=== PATIENT | male | born 1960 | race Two or more races ===

== ENCOUNTER 2024-12-28 14:20 | Emergency (ER) | payer MEDICAID, SELFPAY ==
[2024-12-28 14:31] VITALS: BP 144/98; PULSE 69; RESP 18; TEMP 36.9; O2SAT 95; BMI 29.3
--- NOTE | 2024-12-28 14:51 | EDRME_ITS ---
Rapid Medical Screening Exam RME Arrival date/time: 12/28/24 14:20 Chief Complaint: General Adult/Misc Complain Time Seen by Provider: 12/28/24 14:22 Vital signs: Vital Signs Temperature 98.5 F 12/28/24 14:31 Pulse Rate 69 12/28/24 14:31 Respiratory Rate 18 12/28/24 14:31 Blood Pressure 144/98 H 12/28/24 14:31 Pulse Oximetry (%) 95 12/28/24 14:31 Oxygen Delivery Method Room Air 12/28/24 14:31 RME Narrative: 64-year-old male presents to the ED with a complaint of ongoing right sided back pain that radiates around to his flank and into his abdomen. He states this has been ongoing for many years. He has had an MRI of his lumbar spine. His primary care physician in [facility] recommended he have an ultrasound. He denies any fever or chills, nausea or vomiting, diarrhea or changes in bowel habits. He denies any urinary frequency, dysuria, hematuria, however he has noticed a change in his stream quality with urination. I have greeted and performed a focused initial assessment of this patient. A comprehensive ED assessment and evaluation of the patient, analysis of all test results, and completion of the medical decision making process will be conducted by additional ED providers.
--- NOTE | 2024-12-28 14:57 | XR_ITS ---
Examination: Abdomen sonogram, complete Date and time of exam: December 28, 2024 1603 hrs. Indications: Right flank pain left upper abdominal pain left lower abdominal pain beginning 4 years ago. Technique: Multiple real-time grayscale transabdominal sonographic images of the abdomen have been obtained. Findings: Normal gallbladder Normal common bile duct 0.3 cm Pancreatic head 3.0 cm Aorta not enlarged Liver 16.7 cm fatty infiltration no focal liver lesions Normal hepatopedal portal venous flow Patent IVC Right kidney 11.4 cm cortex 1.6 cm 10 mm renal cyst Left kidney 11.6 cm cortex 2.3 cm Mild bilateral renal parenchymal scar formation Splenomegaly 14.6 cm with multiple splenic cysts, the largest 16 mm Impression: Normal bladder Normal common bile duct Mild hepatomegaly fatty liver Splenomegaly with benign splenic cysts
[2024-12-28 15:31] LABS: Bilirubin,Urine Negative (Negative); Blood,Urine Negative (Negative); Clarity,Urine Clear (Clear/Hazy); Collection Type, Urine Clean Catch; Glucose, Urine Negative (Negative); Hyaline Casts,Urine < 1 /hpf (0-1); Ketones,Urine Negative (Negative); Leukocyte Esterase,Urine Negative (Negative); Nitrite,Urine Negative (Negative); PH,Urine 6.5 (5.0-7.0); Protein,Urine Negative (Neg - Trace); RBC,Urine < 1 /hpf (0-3); Specific Gravity,Urine 1.022 (1.001-1.035); Squamous Epithelial Cell,Urine < 1 /hpf (0-5); Urobilinogen,Urine Negative mg/dL (0.0-1.0); WBC,Urine 1 /hpf (0-5)
[2024-12-28 15:37] LABS: Color,Urine Amber (Lt Yel-Yel)
[2024-12-28 17:09] LABS: Basophils # (Auto) 0.1 Thou/mm3 (0.0-0.2); Basophils % (Auto) 1 % (0-2.5); Eosinophils # (Auto) 0.2 Thou/mm3 (0.0-0.5); Eosinophils % (Auto) 2 % (0-10); Hematocrit 44.3 % (41.0-53.0); Hemoglobin 15.4 g/dL (13.5-16.0); Immature Granulocytes % (Auto) 0 % (0-0); Immature Granulocytes Auto 0.02 Thou/mm3 (0.00-0.00); Lymphocytes # (Auto) 2.5 Thou/mm3 (1.0-4.8); Lymphocytes % (Auto) 31 % (10-50); Mean Corpuscular HGB Conc 34.8 g/dl (31.0-37.0); Mean Corpuscular Hemoglobin 30.9 pg (25.0-35.0); Mean Corpuscular Volume 89 fL (80-100); Monocytes # (Auto) 0.6 Thou/mm3 (0.0-0.8); Monocytes % (Auto) 7 % (0-12); Neutrophils # (Auto) 4.8 Thou/mm3 (1.8-7.7); Neutrophils % (Auto) 59 % (37-80); Nucleated Red Blood Cell % 0 /100 WBC (0); Platelet Count 156 Thou/mm3 (140-440); RDW Standard Deviation 42.1 fL (35.1-43.9); Red Blood Count 4.98 Miln/mm3 (4.50-5.90); White Blood Count 8.1 Thou/mm3 (3.8-10.6)
[2024-12-28 17:21] LABS: Prostate Specific Antigen 0.91 ng/mL (0-4.00)
[2024-12-28 17:22] LABS: Alanine Aminotransferase 13 U/L (10-49); Albumin, Serum 4.3 gm/dL (3.4-4.8); Albumin/Globulin Ratio 1.8 (1.2-2.2); Alkaline Phosphatase 95 U/L (46-116); Anion Gap 6 (7-16); Aspartate Amino Transferase 14 U/L (0-34); BUN/Creatinine Ratio 16 Ratio (12-20); Bilirubin,Total 0.6 mg/dL (0.3-1.2); Blood Urea Nitrogen 18 mg/dL (9-23); Calcium 8.9 mg/dL (8.3-10.6); Calcium (Corrected) 8.9 mg/dL (8.5-10.1); Carbon Dioxide 28.5 mMol/L (20.0-31.0); Chloride 107 mMol/L (98-107); Creatinine (Component) 1.1 mg/dL (0.6-1.3); Estimated Creatinine Clearance 79.7 mL/min (>60); Globulin 2.4 gm/dL (2.3-3.5); Glucose 90 mg/dL (74-106); Osmolality,Calculated 283 (275-295); Potassium 3.3 mMol/L (3.4-5.1); Sodium 141 mMol/L (136-145); Total Protein 6.7 gm/dL (5.7-8.2); eGFR > 60 See Note
--- NOTE | 2024-12-28 18:48 | PD.EDADULT ---
ED General RME/HPI General Chief complaint: General Adult/Misc Complain Stated complaint: PT WANTS ULTRASOUND FOR R) BACK/SIDE/ABD PAIN Time Seen by Provider: 12/28/24 14:22 Arrival date/time: 12/28/24 14:20 64-year-old male presents to the ED with a complaint of ongoing right sided back pain that radiates around to his flank and into his abdomen. He states this has been ongoing for many years. He has had an MRI of his lumbar spine. His primary care physician in [facility] recommended he have an ultrasound. He denies any fever or chills, nausea or vomiting, diarrhea or changes in bowel habits. He denies any urinary frequency, dysuria, hematuria, however he has noticed a change in his stream quality with urination. RME / HPI RME / HPI narrative: 64-year-old male presents to the ED with a complaint of ongoing right sided back pain that radiates around to his flank and into his abdomen. He states this has been ongoing for many years. He has had an MRI of his lumbar spine. His primary care physician in [facility] recommended he have an ultrasound. He denies any fever or chills, nausea or vomiting, diarrhea or changes in bowel habits. He denies any urinary frequency, dysuria, hematuria, however he has noticed a change in his stream quality with urination. I have greeted and performed a focused initial assessment of this patient. A comprehensive ED assessment and evaluation of the patient, analysis of all test results, and completion of the medical decision making process will be conducted by additional ED providers. Onset (ago): year(s) Location: back Related Data Home Medications ?Medication ?Instructions ?Recorded ?Confirmed lisinopril 10 mg tablet 10 mg PO QDAY #0 tabs 03/24/17 11/05/21 verapamil 240 mg tablet,extended 240 mg PO QDAY ##0 03/24/17 11/05/21 release (Calan SR) Previous Rx's ?Medication ?Instructions ?Recorded acetaminophen 500 mg capsule 1,000 mg (2 x 500 mg) PO Q6H PRN 02/01/22 fever or pain #30 caps ibuprofen 800 mg tablet 800 mg PO TID PRN pain #30 tabs 02/01/22 lisinopril 20 mg tablet 20 mg PO QDAY #30 tabs 03/06/23 verapamil 240 mg tablet,extended 240 mg PO QAM #30 tabs 03/06/23 release Allergies Allergy/AdvReac Type Severity Reaction Status Date / Time No Known Allergies Allergy Verified 12/28/24 14:25 Review of Systems Review of Systems Systems Reviewed: All systems reviewed, normal except as documented Past Medical History Past Medical History CARDIAC: Positive Cardiac Disorders and Hypertension; Negative Congestive Heart Failure RESPIRATORY: Negative Chronic Obstructive Pulmonary Disease (COPD) GENITOURINARY: Negative Renal Disease ENDOCRINE: Negative Diabetes Mellitus Type 1 or Diabetes Mellitus Type 2 Social History SMOKING STATUS: Former smoker SUBSTANCE USE: does not use ED Exam General General appearance: Present alert and in no apparent distress Head Head exam: Present atraumatic and normal inspection Eye Eye exam: Present normal appearance; Absent scleral icterus or conjunctival injection ENT ENT exam: Present normal exam Neck Neck exam: Present normal inspection Chest Chest inspection: Present normal inspection Respiratory Respiratory exam: Absent respiratory distress Cardiovascular Cardiovascular exam: Present regular rate and normal rhythm Abdominal Exam Abdominal exam: Absent distention Rectal Exam Rectal exam: Present deferred Extremities Exam Extremities exam: Present normal inspection Back Exam Back exam: Present full ROM Neurological Exam Neurological exam: Present alert and oriented X3 Psychiatric Psychiatric exam: Present normal affect and normal mood Skin Skin exam: Present warm, dry, intact and normal color Course Course Course Narrative: 64-year-old male presents to the ED with a complaint of ongoing right sided back pain that radiates around to his flank and into his abdomen. He states this has been ongoing for many years. He has had an MRI of his lumbar spine. His primary care physician in [facility] recommended he have an ultrasound. He denies any fever or chills, nausea or vomiting, diarrhea or changes in bowel habits. He denies any urinary frequency, dysuria, hematuria, however he has noticed a change in his stream quality with urination. Quality Measures none Orders Category Date Time Status US abdomen Stat Exams 12/28/24 14:57 Completed CBC Stat Lab 12/28/24 16:53 Completed CMP [Comprehensive Metabolic Panel] Stat Lab 12/28/24 16:53 Completed PSA [Prostate Specific Antigen] Stat Lab 12/28/24 16:53 Completed Urinalysis Stat Lab 12/28/24 15:13 Completed Urine Culture Stat Lab 12/28/24 15:13 Completed Vital Signs Vital signs: Vital Signs Temperature 98.5 F 12/28/24 14:31 Pulse Rate 69 12/28/24 14:31 Respiratory Rate 18 12/28/24 14:31 Blood Pressure 144/98 H 12/28/24 14:31 Pulse Oximetry (%) 95 12/28/24 14:31 Oxygen Delivery Method Room Air 12/28/24 14:31 Discharge Plan Plan Patient Disposition: HOME (Self Care) Discharge Disposition comment: Stable Prescriptions/Referrals Prescriptions/Med Rec: No Action lisinopril 10 MG tablet 10 mg PO QDAY Qty: 0 verapamil [Calan SR] 240 MG tablet extended release 240 mg PO QDAY Qty: 0 ibuprofen 800 mg tablet 800 mg PO TID PRN (Reason: pain) Qty: 30 0RF acetaminophen 500 mg capsule 1,000 mg PO Q6H PRN (Reason: fever or pain) Qty: 30 0RF lisinopril 20 mg tablet 20 mg PO QDAY Qty: 30 0RF verapamil 240 mg tablet extended release 240 mg PO QAM Qty: 30 0RF Referrals: Yobany Gilliam MD [Primary Care Provider] - In 1 week Problem List Clinical Impression: Fatty infiltration of liver, Chronic back pain Patient/Caregiver Discharge Instructions Education Materials: Nonalcoholic Fatty Liver ..., ED Back Pain (Acute or Chronic) Additional Instructions: Follow-up with your primary care physician in 24 to 48 hours. Return to the ED for any new or worsening symptoms. Print Language: Rwandan Stand Alone Forms: Lizzette Award Info., Patient Portal Info Letter PA/ACCOUNTANT COST Supervising Physician PA/ACCOUNTANT COST Supervising Physician: Dr. Aguilar
== END 2024-12-28 19:23 | disposition home or self-care (01) ==
PROVIDERS: Physician Assistant; Emergency Provider Emergency Medicine; PCP Family Medicine
DX: K76.0 Fatty (change of) liver, not elsewhere classified (principal); M54.9 Dorsalgia, unspecified; G89.29 Other chronic pain
CPT/HCPCS: 36415; 76700; 80053; 81001; 84153; 85025; 87086; 99284

== ENCOUNTER → 2024-12-30 | Outpatient (CLI) | payer MEDICAID, SELFPAY ==
--- NOTE | 2024-12-30 16:54 | XR_ITS ---
Examination: Thoracic spine 3 views Technique: AP lateral coned lateral upper dorsal spine 3 views Exam date and time: December 30, 2024 1656 hrs. Indications: Upper back pain several years. Findings: Thoracic dextroscoliosis 8 degrees Mild osteopenia Prominent thoracic spondylosis No acute thoracic fracture Mild to moderate diffuse thoracic degenerative disc disease Impression: Mild to moderate diffuse thoracic degenerative disc disease
== END | disposition home or self-care (01) ==
DX: M51.34 Other intervertebral disc degeneration, thoracic region (principal)
CPT/HCPCS: 72070

== ENCOUNTER 2025-09-08 11:37 | Emergency (ER) | payer SELFPAY ==
[2025-09-08 11:48] VITALS: BP 170/105; PULSE 61; RESP 18; TEMP 36.8; O2SAT 96; BMI 28.0
--- NOTE | 2025-09-08 11:49 | PD.EDWOUND ---
ED Wound/Laceration-RME/HPI General Chief Complaint: Wound/Laceration Stated Complaint: Laceration to the top of right hand Time Seen by Provider: 09/08/25 11:49 Arrival date/time: 09/08/25 11:37 65-year-old male presents to the emergency department complaint of laceration of the right hand patient reports he was working at the house today and accidentally cut himself with a saw. Patient does report tetanus up-to-date Limitations: no limitations Related Data Home Medications ?Medication ?Instructions ?Recorded ?Confirmed lisinopril 10 mg tablet 10 mg PO QDAY #0 tabs 03/24/17 11/05/21 verapamil 240 mg tablet,extended 240 mg PO QDAY ##0 03/24/17 11/05/21 release (Calan SR) Previous Rx's ?Medication ?Instructions ?Recorded acetaminophen 500 mg capsule 1,000 mg (2 x 500 mg) PO Q6H PRN 02/01/22 fever or pain #30 caps ibuprofen 800 mg tablet 800 mg PO TID PRN pain #30 tabs 02/01/22 lisinopril 20 mg tablet 20 mg PO QDAY #30 tabs 03/06/23 verapamil 240 mg tablet,extended 240 mg PO QAM #30 tabs 03/06/23 release Allergies Allergy/AdvReac Type Severity Reaction Status Date / Time No Known Allergies Allergy Verified 09/08/25 11:42 Review of Systems Review of Systems Systems Reviewed: All systems reviewed, normal except as documented Constitutional Constitutional: Reports system reviewed and no additional complaints, except as documented, Denies fever(s) and Denies headache(s) Eyes Eyes: Reports system reviewed and no additional complaints, except as documented and Denies blurry vision ENT Ears, Nose, Mouth, and Throat: Reports system reviewed and no additional complaints, except as documented, Denies headache(s), Denies nasal congestion and Denies nasal discharge Cardiovascular Cardiovascular: Reports system reviewed and no additional complaints, except as documented, Denies chest pain and Denies dyspnea Respiratory Respiratory: Reports system reviewed and no additional complaints, except as documented, Denies chest congestion, Denies cough and Denies dyspnea Gastrointestinal Gastrointestinal: Reports system reviewed and no additional complaints, except as documented and Denies abdominal pain Integumentary/Breasts Skin/Breast: Reports system reviewed and no additional complaints, except as documented, Denies rash and Reports wounds (Laceration right hand) Neurologic Neurologic: Reports system reviewed and no additional complaints, except as documented, Reports as per HPI and Denies headache(s) Past Medical History Past Medical History CARDIAC: Positive Cardiac Disorders and Hypertension; Negative Congestive Heart Failure RESPIRATORY: Negative Chronic Obstructive Pulmonary Disease (COPD) GENITOURINARY: Negative Renal Disease ENDOCRINE: Negative Diabetes Mellitus Type 1 or Diabetes Mellitus Type 2 Social History SMOKING STATUS: Former smoker SUBSTANCE USE: does not use ED Exam General Limitations: Present no limitations General appearance: Present alert and in no apparent distress Head Head exam: Present atraumatic, normocephalic and normal inspection Eye Eye exam: Present normal appearance, PERRL and EOMI; Absent conjunctival injection ENT ENT exam: Present normal exam, normal oropharynx and mucous membranes moist Neck Neck exam: Present normal inspection, full ROM and trachea midline Chest Chest inspection: Present normal inspection and symmetric chest wall rise Respiratory Respiratory exam: Present normal lung sounds bilaterally Cardiovascular Cardiovascular exam: Present regular rate, normal rhythm and normal heart sounds Abdominal Exam Abdominal exam: Present soft and normal bowel sounds Extremities Exam Extremities exam: Present full ROM, tenderness, normal capillary refill and other (Laceration right hand); Absent joint swelling Back Exam Back exam: Present normal inspection and full ROM Neurological Exam Neurological exam: Present alert, oriented X3 and CN II-XII intact Psychiatric Psychiatric exam: Present normal affect and normal mood Skin Skin exam: Present warm, dry and other (Laceration right hand) Course Quality Measures none Orders Category Date Time Status Set Up Suture Tray STAT Care 09/08/25 11:49 Active Wound Care NOW Care 09/08/25 11:49 Active Lidocaine 1% Vial 20 ml [Xylocaine 1% 20 ML] Med 09/08/25 11:49 Discontinued 20 ml INFL X1 ONE Vital Signs Vital signs: Vital Signs Temperature 98.2 F 09/08/25 11:48 Pulse Rate 61 09/08/25 11:48 Respiratory Rate 18 09/08/25 11:48 Blood Pressure 170/105 H 09/08/25 11:48 Pulse Oximetry (%) 96 09/08/25 11:48 Oxygen Delivery Method Room Air 09/08/25 11:48 O2 saturation 96% room air within the limits PROCEDURES: Laceration Laceration 1: Site: hand Side (If applicable): right Size (cm): 5 Description: irregular Depth: simple, single layer Local Anesthetic: lidocaine 1% Amount of anesthesia used (mL): 7 Pre-repair: wound explored and irrigated extensively Skin layer closed with: nylon Suture size (cm): 4-0 Number of sutures: 9 Technique: simple, interrupted Wound / Laceration MDM Narrative MDM Narrative:: 65-year-old male presents to the emergency department complaint of laceration of the right hand patient reports he was working at the house today and accidentally cut himself with a saw. Patient does report tetanus up-to-date Clinically patient well-appearing does not appear ill or toxic no acute stress Exam patient has a laceration dorsal aspect of the right hand approximately 2 inches in length On exam patient has no tendon or ligamentous injury Patient discharged home in no distress to follow-up with primary care doctor in the next 24 to 48 hours and for any worsening symptoms to return to the ER immediately Patient data External records reviewed:: [facility] previous records Clinical information provided by:: patient Social determinants that could affect healthcare access:: none Patient has the following chronic illnesses:: None How is presenting disease/condition affected by chronic disease/condition?: no chronic disease Evaluation data The following diagnostics were reviewed and interpreted by me:: other (specify) Lab and/or radiology exams considered but not ordered:: Considered not ordered Interpretation Summary: N/A Medications / Prescriptions Medications or Prescriptions considered but not ordered:: Given Medication administrations:: Medication Administration History Discontinued Medications Lidocaine HCl (Lidocaine Hcl 1% 20 Ml Vial) 20 ml INFL X1 ONE Stop: 09/08/25 11:50 Last Admin: 09/08/25 12:42 Dose: 20 ml Documented By: Given Consultations Consultation(s) initiated? (list below): No Diagnosis Wound Differential Diagnosis: laceration, abrasion and avulsion of skin Most likely diagnosis given after review of the tests above:: Hand laceration right hand Admission Indicated Admission indicated?: not indicated Admission Request Was there a request for admission?: No Disposition Plan Disposition Plan: Discharge Discharge Attestation Discharge Attestation: The patient and all family members were given an opportunity to ask questions and understood the discharge instructions. Discharge instructions specifically effects, indications for sooner follow up or return to the emergency department, and the expected course of current diagnosis. Patient condition: Stable Discharge Plan Plan Patient Disposition: HOME (Self Care) Discharge Disposition comment: Stable Prescriptions/Referrals Prescriptions/Med Rec: No Action lisinopril 10 MG tablet 10 mg PO QDAY Qty: 0 verapamil [Calan SR] 240 MG tablet extended release 240 mg PO QDAY Qty: 0 ibuprofen 800 mg tablet 800 mg PO TID PRN (Reason: pain) Qty: 30 0RF acetaminophen 500 mg capsule 1,000 mg PO Q6H PRN (Reason: fever or pain) Qty: 30 0RF lisinopril 20 mg tablet 20 mg PO QDAY Qty: 30 0RF verapamil 240 mg tablet extended release 240 mg PO QAM Qty: 30 0RF Problem List Clinical Impression: Laceration of hand, right Patient/Caregiver Discharge Instructions Education Materials: ED Laceration: All Closures Additional Instructions: Please follow up with your primary care doctor in the next 24-48hrs for any worsening symptoms return here immediately Please have sutures removed in 10 to 14 days Print Language: Sami Stand Alone Forms: Lizzette Award Info., Patient Portal Info Letter PA/BARRATTE OPERATOR Supervising Physician PA/OUMAR Supervising Physician: Dr velez
[2025-09-08] MEDS: LIDOCAINE HCL 1% 20 ML VIAL INFL (12:42)
== END 2025-09-08 14:10 | disposition home or self-care (01) ==
LOC: SERX 14:22
PROVIDERS: Emergency Provider Family Medicine
DX: S61.411A Laceration without foreign body of right hand, initial encounter (principal); W27.0XXA Contact with workbench tool, initial encounter; Y93.89 Activity, other specified; Y92.009 Unspecified place in unspecified non-institutional (private) residence as the place of occurrence of the external cause
CPT/HCPCS: 12002; 99281; J3490